=== PATIENT | male | born 1945 | race Caucasian/White ===

== ENCOUNTER → 2016-06-14 | Outpatient (CLI) | payer OTHER | LOC: BHFA 09:00 | PROVIDERS: ATTEND Internal Medicine Cardiovascular Disease | DX: I82.409 Acute embolism and thrombosis of unspecified deep veins of unspecified lower extremity (principal); E78.5 Hyperlipidemia, unspecified | CPT/HCPCS: 78452; 93017; A9500; J2785 ==

== ENCOUNTER 2017-09-14 11:22 | Inpatient (IN) | payer OTHER, MEDICARE ==
--- NOTE | 2017-09-14 11:35 | EDPHY ---
H & P Time Seen by Provider: 09/14/17 11:27 HPI/ROS: CHIEF COMPLAINT: Altered mental status HISTORY OF PRESENT ILLNESS: The patient is a 71-year-old male on Coumadin who presents to the emergency department via EMS. Per report, the patient was found sitting naked in his car. He was found by his prior to arrival. He was last seen normal last evening. Patient's does not know what he was doing in the car or how he got there. The patient is unable to answer questions to contribute to the history. EMS states that the patient had a fall last . EMS also states that when they stood the patient from the car he spontaneously urinated. REVIEW OF SYSTEMS: Unable to obtain due the patient's mental status Smoking Status: Never smoked Physical Exam: Vitals noted GENERAL: No acute distress, alert. HEAD: Patient has dry blood and bruising on his left brow. There is a 2 cm crusted laceration on the left brow. EYES: PERRLA, EOMI, normal to inspection. ENT: Airway intact, no dental or oral injury, no malocclusion, no hemotympanum , normal external examination. NECK: The trachea is midline. There is no crepitus. The C-spine is nontender. RESPIRATORY: Clear to auscultation bilaterally, no rales, rhonchi or wheezing. There is no crepitus or palpable rib fractures. CVS: Regular rate and rhythm, no rubs, murmurs, or gallops. ABDOMEN: Soft, nontender, nondistended, normal bowel sounds, no bruising or abrasions. Pelvis: Stable. No tenderness palpation. Hips full range of motion. GENITAL/RECTAL: Normal external exam. BACK: There is a bruise on the left lateral back. No obvious tenderness to palpation. No spinal tenderness, no spinal step off SKIN: Normal color, warm, dry. No pallor or diaphoresis. EXTREMITIES: Atraumatic, neurovascularly intact distally in all extremities, pelvis is stable , hips with full range of motion, moves all extremities freely. NEURO/PSYCH: Alert and oriented x 0, GCS 14, coordinated movement. Normal motor sensory exam. Constitutional: Initial Vital Signs Temperature (C) 38.1 C 09/14/17 11:31 Heart Rate 108 H 09/14/17 11:31 Respiratory Rate 18 09/14/17 11:31 Blood Pressure 150/91 H 09/14/17 11:31 O2 Sat (%) 93 09/14/17 11:31 O2 Delivery Mode Room Air Allergies/Adverse Reactions: No Allergies [NKDA] Allergy (Verified 02/21/12 10:22) Home Medications: Medication Instructions Recorded Atorvastatin Calcium [Lipitor 80 80 mg PO DAILY 03/25/13 mg] Warfarin Sodium [Coumadin 5MG (*)] 7.5 mg PO DAILY 02/02/14 Escitalopram Oxalate [Lexapro] 10 mg PO DAILY 09/14/17 Zolpidem Tartrate [Zolpidem 10 mg PO HS PRN 09/14/17 Tartrate] Medical Decision Making - Diagnostics Imaging Results: Imaging Impressions Cervical Spine CT 09/14/17 11:28 Impression: 1. No acute posttraumatic abnormality identified. If there is persistent pain or neurologic deficit, consider MRI and/or flexion and extension views, if clinically indicated. 2. Multilevel degenerative change with severe spinal canal narrowing from C5-C7. Findings discussed with Rona Jimenez MD on September 14, 2017 at 1245 hours. Chest X-Ray 09/14/17 11:28 Impression: Hypoventilatory chest with no acute findings. Head CT 09/14/17 11:28 Impression: 1. Multiple left frontal parenchymal hemorrhages with minimal subarachnoid hemorrhage. 2. Tiny right frontal parenchymal versus subarachnoid hemorrhage. 3. Additional findings as above. Findings discussed with Rona Jimenez MD on September 14, 2017 at 1231 hours. ED Course/Re-evaluation: I met EMS on arrival. I took report from the pantry worker. Patient does appear to have traumatic injury on his left brow. Is also concern with possible stroke -like symptoms. The patient was last seen normal last evening. I do not know the exact time. The patient also has traumatic injury. Because of these findings I did not make the patient a stroke alert. EKG shows normal sinus rhythm, normal rate, normal axis, normal intervals. There are no ST or T-wave abnormalities. EKG is normal as interpreted by me. I reviewed the patient's laboratory studies. Lactic acid is elevated at 2.7. Patient's white count is elevated at 11. Patient's chemistry panel is notable for a mildly elevated anion gap at 17. Patient's total bilirubin is elevated at 2.2. Unconjugated bilirubin elevated at 1.7. Lipase is 92. Patient has a mildly elevated INR 1.3. Chest x-ray: No acute disease Head CT: Please refer the dictated report by Dr. Pendleton. The patient has intracranial hemorrhage the left frontal lobe. I discussed the results with Dr. Escobedo from Neurosurgery. He will evaluate the patient. I also discussed case with the hospitalist service. Dr. Thomas will admit. The patient was given Rocephin 1 g IV. This was due to his fever and elevated lactic acid. I was concerned the patient could have urosepsis. However, when the urine came back it was negative. I rechecked the patient. He was maintaining his airway. Aside from aphasia, he had no focal deficits on repeat exam. Differential Diagnosis: My differential includes but is not limited to subarachnoid hemorrhage, subdural hematoma, epidural hematoma, contusion, ischemic CVA, hemorrhagic CVA, dissection, aneurysm, bacteremia, sepsis, pneumonia, urinary tract infection, pyelonephritis Critical Care Time: Patient required 35 min of critical care time. This was exclusive of any unbundled procedure. This was due the patient's altered mental status, need for frequent rechecks, discussion with patient , EMS and hospitalist service. - Data Points Laboratory Results: Laboratory Results 09/14/17 11:20 09/14/17 11:20 09/14/17 09/14/17 09/14/17 11:40 11:35 11:20 WBC RBC Hgb Hct MCV MCH MCHC RDW Plt Count MPV Neut % (Auto) Lymph % (Auto) [place] % (Auto) Eos % (Auto) Baso % (Auto) Nucleat RBC Rel Count Absolute Neuts (auto) Absolute Lymphs (auto) Absolute Monos (auto) Absolute Eos (auto) Absolute Basos (auto) Absolute Nucleated RBC Immature Gran % Immature Gran # RBC/WBC/PLT Morphology Platelet Estimate Oval Macrocytes Green-[place] Bodies Smear Review By PT INR APTT VBG Lactic Acid 2.7 mmol/L H mmol/L (0.7-2.1) Sodium 137 mEq/L mEq/L (135-145) Potassium 3.7 mEq/L mEq/L (3.3-5.0) Chloride 98 mEq/L mEq/L (97-110) Carbon Dioxide 22 mEq/l mEq/l (22-31) Anion Gap 17 mEq/L H mEq/L (8-16) BUN 20 mg/dL mg/dL (7-23) Creatinine 0.9 mg/dL mg/dL (0.7-1.3) Estimated GFR > 60 Glucose 188 mg/dL H mg/dL (70-100) Calcium 9.2 mg/dL mg/dL (8.5-10.4) Total Bilirubin 2.2 mg/dL H mg/dL (0.1-1.4) Conjugated Bilirubin 0.5 mg/dL mg/dL (0.0-0.5) Unconjugated Bilirubin 1.7 mg/dL H mg/dL (0.0-1.1) AST 76 IU/L H IU/L (17-59) ALT 46 IU/L IU/L (21-72) Alkaline Phosphatase 111 IU/L IU/L (38-126) POC Troponin I 0.02 ng/mL ng/mL (0.00-0.08) Total Protein 8.3 g/dL H g/dL (6.3-8.2) Albumin 4.6 g/dL g/dL (3.5-5.0) Lipase 92 IU/L IU/L (23-300) Ethyl Alcohol < 10 mg/dL mg/dL (0-10) 09/14/17 09/14/17 11:20 11:20 WBC 11.88 10^3/uL H 10^3/uL (3.80-9.50) RBC 4.33 10^6/uL L 10^6/uL (4.40-6.38) Hgb 14.5 g/dL g/dL (13.7-17.5) Hct 40.9 % % (40.0-51.0) MCV 94.5 fL fL (81.5-99.8) MCH 33.5 pg pg (27.9-34.1) MCHC 35.5 g/dL g/dL (32.4-36.7) RDW 13.5 % % (11.5-15.2) Plt Count 224 10^3/uL 10^3/uL (150-400) MPV 10.5 fL fL (8.7-11.7) Neut % (Auto) 66.5 % % (39.3-74.2) Lymph % (Auto) 15.1 % % (15.0-45.0) [place] % (Auto) 17.8 % H % (4.5-13.0) Eos % (Auto) 0.1 % L % (0.6-7.6) Baso % (Auto) 0.2 % L % (0.3-1.7) Nucleat RBC Rel Count 0.0 % % (0.0-0.2) Absolute Neuts (auto) 7.90 10^3/uL H 10^3/uL (1.70-6.50) Absolute Lymphs (auto) 1.79 10^3/uL 10^3/uL (1.00-3.00) Absolute Monos (auto) 2.11 10^3/uL H 10^3/uL (0.30-0.80) Absolute Eos (auto) 0.01 10^3/uL L 10^3/uL (0.03-0.40) Absolute Basos (auto) 0.02 10^3/uL 10^3/uL (0.02-0.10) Absolute Nucleated RBC 0.00 10^3/uL 10^3/uL (0-0.01) Immature Gran % 0.3 % % (0.0-1.1) Immature Gran # 0.04 10^3/uL 10^3/uL (0.00-0.10) RBC/WBC/PLT Morphology TNP Platelet Estimate Pending Oval Macrocytes 1+ H Green-[place] Bodies 1+ H Smear Review By Pending PT 16.7 SEC H SEC (12.0-15.0) INR 1.33 H (0.83-1.16) APTT 28.7 SEC SEC (23.0-38.0) VBG Lactic Acid Sodium Potassium Chloride Carbon Dioxide Anion Gap BUN Creatinine Estimated GFR Glucose Calcium Total Bilirubin Conjugated Bilirubin Unconjugated Bilirubin AST ALT Alkaline Phosphatase POC Troponin I Total Protein Albumin Lipase Ethyl Alcohol Medications Given: Discontinued Medications Acetaminophen (Tylenol) 650 mg PO EDNOW ONE Stop: 09/14/17 11:46 Last Admin: 09/14/17 11:49 Dose: 650 mg Sodium Chloride (Ns) 1,000 mls @ 0 mls/hr IV ONCE ONE PRN Reason: Wide Open Stop: 09/14/17 11:46 Last Admin: 09/14/17 11:48 Dose: 1,000 mls Sodium Chloride (Ns) 500 mls @ 0 mls/hr IV ONCE ONE PRN Reason: Wide Open Stop: 09/14/17 12:41 Last Admin: 09/14/17 14:14 Dose: 500 mls Ceftriaxone Sodium/Dextrose (Rocephin 1 Gm (Premix)) 50 mls @ 100 mls/hr IV EDNOW ONE PRN Reason: Protocol Stop: 09/14/17 13:13 Last Admin: 09/14/17 13:08 Dose: 50 mls Point of Care Test Results: Chemistry 09/14/17 11:40 POC Troponin I 0.02 ng/mL ng/mL (0.00-0.08) Departure - Departure Disposition: [facility] Inpatient Acute Clinical Impression: Intracranial hemorrhage Sepsis Qualifiers: Sepsis type: sepsis due to unspecified organism Qualified Code(s): A41.9 - Sepsis, unspecified organism Condition: Good
[2017-09-14 11:43] LABS: PLATELET COUNT 224 10^3/uL (150-400)
[2017-09-14] MEDS ORDERED: ACETAMINOPHEN 325 MG TAB PO ONE (11:45)
[2017-09-14] MEDS ORDERED: NS 1,000 ML IV ONE (11:45)
--- NOTE | 2017-09-14 11:45 | CPEKG ---
Heart Rate: 93 RR Interval: 645 P-R Interval: 172 QRSD Interval: 100 QT Interval: 396 QTC Interval: 493 P Clanton: 68 QRS Clanton: -12 T Wave Clanton: -12 EKG Severity - BORDERLINE ECG - EKG Impression: SINUS RHYTHM EKG Impression: BORDERLINE T ABNORMALITIES, INFERIOR LEADS EKG Impression: PROLONGED QT INTERVAL Electronically Signed By: Clyde Fischer 17-Sep-2017 07:32:22
[2017-09-14 11:46] LABS: INR 1.33 (0.83-1.16); PROTIME(PATIENT) 16.7 SEC (12.0-15.0)
[2017-09-14] MEDS ORDERED: NS 500 ML IV ONE (12:40)
--- NOTE | 2017-09-14 12:47 | PDCONSULT ---
Jail Keeper Note: NEUROSURGERY Imaging reviewed. Full consult to follow. 71M found with AMS in car. Likely head trauma with new laceration. CT with two areas of left frontal IPH, likely contusions. No significant mass effect, no shift. Mild surrounding edema suggestive of subacute status. No need for neurosurgical intervention at this time monitor in ICU or SDU with q2h neuro checks blood pressure contol 90-[address] scan in 6 hours urosepsis management per medicine will follow Felix Escobedo MD
[2017-09-14] MEDS ORDERED: ACETAMINOPHEN 325 MG TAB PO PRN (12:52)
[2017-09-14] MEDS ORDERED: ONDANSETRON 4 MG/2 ML VIAL IVP PRN (12:52)
[2017-09-14] MEDS ORDERED: ONDANSETRON DISINTEGRATING 4 MG TAB PO PRN (12:52)
[2017-09-14] MEDS ORDERED: FLUMAZENIL 0.5 MG/5 ML MDV IVP PRN (15:00)
--- NOTE | 2017-09-14 15:41 | GHP ---
[f rep st] HISTORY AND PHYSICAL DATE OF ADMISSION: 09/14/2017 CHIEF COMPLAINT: Acute encephalopathy, fall. HISTORY OF PRESENT ILLNESS: A 71-year-old male with history of splenic, portal vein thrombosis, and DVT on coumadin, alcohol dependence, brought in for confusion. History is obtained from his and [facility] since patient confused. found him today sitting naked in the car buckled in as if he was going to drive away. Was babbling and not making sense, no facial droop. No recent infectious symptoms. He has been eating and drinking less over last couple of days. She noticed he was a little confused last night, but that significantly changed this morning. He fell night at approximately 3 a.m. after standing up from a chair. She saw him falling backwards, hitting head on [place] floor. "Has balance issues". She thinks Ambien contributed to fall. His last Coumadin clinic visit was in June of 2017 per our records. INR is 1.3 today. REVIEW OF SYSTEMS: I completed a 10-point review of systems, negative except in HPI. PAST MEDICAL HISTORY: Possible TIA, gastric varices, splenic vein thrombosis, portal vein thrombosis, history of right calf DVT, hyperlipidemia. PAST SURGICAL HISTORY: Left CHELY, right TKA, urinary sphincter, splenectomy. FAMILY HISTORY: He denies coronary disease, diabetes, or high blood pressure. SOCIAL HISTORY: Lives in [place] with his . No tobacco. Drinks a magnum of wine daily. Last drink was night. No tobacco. ALLERGIES: None. HOME MEDICATIONS: Coumadin 7.5 mg daily, Lexapro 10 mg daily, atorvastatin 80 mg daily, Ambien 5 mg at bedtime, Lasix. PHYSICAL EXAMINATION: VITAL SIGNS: Temperature 37.3, blood pressure is 131/83 , heart rate in the 90s, respiration 20, 91% on room air. GENERAL: He is very fidgety and restless in bed, trying to climb out. HEENT: Pupils are small, but round, reactive. Eyes: Could not follow my finger with exam. Has a large scabbed over laceration on his left forehead. His oropharynx is clear. No exudate or erythema. He has dry mucous membranes. CV: Regular rate and rhythm. LUNGS: Clear. ABDOMEN: Obese, soft. No grimace or pain with palpation. No CVA tenderness. MUSCULOSKELETAL: He is moving all 4 extremities. NEURO: He follows some commands. No facial droop. Not participating fully in my exam. PSYCH: He is alert to himself, not place or his 's name next. LABORATORY/IMAGING: Lactate is 2.7. Sodium 137, potassium 3.7, chloride 98, carbon dioxide 22, anion gap 17, creatinine 0.9, glucose 188, calcium 9.2. Total bilirubin 2.2, unconjugated 1.7, AST 76, ALT 46, troponin 0.02, total protein 8.3, albumin is 4.6. Lipase is 92. troponin 0.02, Blood alcohol is less than 10. UA is +2 blood. INR is 1.3 PTT 16. Chest x-ray is personally reviewed by me: Poor inspiratory efforts. No opacity. EKG personally reviewed by me: Normal sinus rhythm. T-wave inversion in lead III, flattening in II and aVF. CT personally reviewed by me: Multiple left frontal parenchymal hemorrhages with minimal subarachnoid hemorrhage. Tiny right frontal parenchymal versus subarachnoid hemorrhage. Cervical CT-spine: No acute fracture. ASSESSMENT AND PLAN: 1. Acute encephalopathy: multifactorial with acute intraparenchymal hemorrhage/ SDH/SAH. Mild fever in ER, but no infectious cause yet. Normal UA and chest x- ray. Complete infectious eval for respiratory PCR, RUQ. Alcohol withdrawal could be contributing; last drink 2 days ago. CIWA. Monitor in step-down unit with q.2 neuro checks, repeat CT scan in 6 hours. Troponin, EKG were negative for ischemia. 2. Intraparenchymal/subarachnoid hemorrhage: traumatic fall on coumadin.Dr. Escobedo evaluated. Repeat CTH, hold Coumadin. q2h neuro checks. No surgical intervention now. Speech, PT/OT 3. h/o thromboses:splenic/portal vein, and right calf. Appears not compliant with Coumadin. His INR is 1.3. Have to hold the next couple of days with acute hemorrhage. 4. Alcohol dependence: drinks a magnum of wine a day. Will need counseling when mental status clears. CIWA 5. Lactic acidosis: Suspect this is starvation ketoacidosis with decreased p.o. intake. Intravenous fluids. Repeat lactate pending. Blood alcohol actually is pending. 6. Hyperlipidemia. statin 7. Hyperbilirubinemia. Suspect this is secondary to alcohol. He is not tender on exam. Can consider ultrasound. 8. Diet: N.p.o. until speech evaluation. 9. DVT prophylaxis. DISPOSITION: Patient warrants inpatient admission given acute encephalopathy requiring further imaging, CIWA, and infectious evaluation. CRITICAL CARE TIME SPENT: 45 minutes bedside with patient, speaking with and reviewing imaging, labs, and coordinating care in the ICU. /[id number]/MODL MTDD
[2017-09-14] MEDS: THIAMINE HCL 500 MG in NS 100 ML IV SCH (15:54)
[2017-09-14] MEDS: LORazepam 2 MG/ML INJ IVP PRN ×3 (16:47→21:28)
--- NOTE | 2017-09-14 17:27 | GCON ---
[f rep st] CONSULTATION NEUROSURGERY CONSULT DATE OF CONSULTATION: 09/14/2017 The patient was seen at 4:30 p.m. on the ICU at [facility]. HPI: The patient is a 71-year-old man with a history of splenic and portal vein thrombosis on Coumad in as well as alcohol dependence who was brought in with altered mental status. Apparently this morn ing he was found in his car naked, buckled in as if he were going to drive. He was having some insen sible speech, but no facial droop or obvious weakness. He was slightly confused last night, but was significantly worse this morning. He has had a couple of falls over the last week, most recently 2 d ays ago where he hit the back of his head on the floor. He also had a large scab in the left frontal region today upon presentation. He was seen in the emergency department where a CT of the head reve aled 2 left frontal intraparenchymal hemorrhages consistent with contusions. The largest of these me asured 2.8 x 1.6 cm. There was very mild surrounding cytotoxic or vasogenic edema and a small amount of subarachnoid hemorrhage around the left frontal lobe. All this was consistent with trauma, but t he edema around these does raise some thought of whether this could be underlying hemorrhagic metasta ses. We were consulted for further management. REVIEW OF SYSTEMS: A 10-point review of systems really could not be obtained due the patient's aphas ia. PAST MEDICAL HISTORY: 1. TIA. 2. Gastric varices. 3. Splenic vein thrombosis. 4. Portal vein thrombosis. 5. DVTs in the calf. 6. Hyperlipidemia. PAST SURGICAL HISTORY: 1. Left hip arthroplasty. 2. Right knee arthroplasty. 3. Urinary sphincterotomy. 4. Splenectomy. FAMILY HISTORY: Reviewed, but was noncontributory to this admission. SOCIAL HISTORY: The patient lives in [place] with his . He does not use tobacco. He drinks at least 1 magnum of wine daily. His last drink was night. ALLERGIES: None. MEDICATIONS: 1. Coumadin. 2. Lexapro. 3. Atorvastatin. 4. Ambien. 5. Lasix. PHYSICAL EXAMINATION: VITAL SIGNS: Currently, he is afebrile with normal stable vital signs. GENER AL APPEARANCE: He is awake and alert. HEENT: His pupils are equal, round, and reactive to light. Extraocular movements are intact. Face is symmetric. Tongue is midline. He has some ecchymoses ove r the left eye and a large eschar over the left frontal region consistent with a trauma. NEUROLOGIC: He has a marked expressive aphasia, is not really able to answer any questions clearly. 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 He has full strength at the delt oid, biceps, triceps, wrist flexion, extension, and packaging supervisor bilaterally. In the lower extremities, he h as 5/5 strength to hip flexion, extensors, knee flexors, extension, and plantar and dorsiflexion. Hi s face is symmetric. Sensation appears to be intact and his deep tendon reflexes are normal. There is no pronator drift. IMAGING REVIEW: See HPI. LABORATORY REVIEW: Lactate is 2.7. Sodium 137, potassium 3.7, creatinine 0.9, glucose 188. Blood a lcohol is less than 10. INR is 1.3, PT 16. White count is 11.8, hemoglobin 14.5, hematocrit 40.9. Platelet count is 224,000. ASSESSMENT/PLAN: 1. The patient is a 71-year-old man who presents with likely traumatic left frontal contusions and a small amount of traumatic subarachnoid hemorrhage. There really is not significant mass effect from these contusions at this point; however, they could explain his expressive aphasia. It appears as t gilbert these are slightly subacute and maybe happened within the last 12 or 24 hours. His overall abby rologic exam is excellent to follow. Therefore, I would continue with q.2 hour neurologic checks. Glenny centeno to repeat a CAT scan after 6 hours or so sometime this evening and consider an MRI with and with out contrast tomorrow to rule out any other source for these or given his history of clotting could t hese be hemorrhagic conversion of infarct, although the anatomic distribution would be slightly unusu al for this. His INR is 1.3 today, so I would leave him off Coumadin for at least 3 days after which time we can consider restarting it, but slowly with the goal of raising the INR to therapeutic over 5-7 days. 2. Deep vein thrombosis prophylaxis. Heparin would be fine at this point. We will follow along while he is here in the hospital. Please do not hesitate to contact us with any further questions or concerns. Thanks for the kind consultation. /[id number]/MODL
[2017-09-15] MEDS: NS 1,000 ML IV SCH ×2 (00:08→20:53)
[2017-09-15] MEDS: LORazepam 2 MG/ML INJ IVP PRN ×7 (00:52→20:48)
[2017-09-15 05:03] LABS: INR 1.34 (0.83-1.16); PROTIME(PATIENT) 16.8 SEC (12.0-15.0)
[2017-09-15] MEDS ORDERED: PROTOCOL MAGNESIUM 1 DOSE IV PRN (05:41)
[2017-09-15] MEDS ORDERED: PROTOCOL POTASSIUM 1 DOSE MISC PRN (05:41)
[2017-09-15] MEDS ORDERED: POTASSIUM Cl (KCl) 100 ML IV SCH ×2 (06:30→15:00)
[2017-09-15] MEDS: POTASSIUM Cl (KCl) 10 MEQ in NS 100 ML IV SCH ×6 (06:32→17:41)
[2017-09-15] MEDS ORDERED: MAGNESIUM SULF 2 GM/WATER 50 ML IV ONE (06:47)
--- NOTE | 2017-09-15 09:34 | NEUSURGPN ---
Assessment/Plan: S: Patient is following commands and somewhat more verbal than yesterday. Per RN was very agitated last night needing several doses of Ativan. O: Responds to name, cannot say last name, date, place or say how many fingers Eyes open to tactile stimulation PERRL, EOMI [place]WE[place] X4- not always to command left sided facial abrasions, ecchymoses A/P: 71 yo male with AMS, expressive aphasia and hx of ETOH abuse, found to have 2 left frontal contusions. -CT head stable yesterday evening -CT scan still concerning for possible hemorrhagic metastases- will obtain MRI Brain w and wo contrast once stable enough to do so- currently too agitated -Precedex ok rather than Ativan for ETOH withdrawal- will defer to primary team for this -Continue Q2 hour neuro checks as able -Any changes, or concerns please contact neurosurgery -DVT prophy ok from Neurosurgery standpoint- would prefer SubQ Hep 5000 q12 no bolus -Seen by Dr. Escobedo and myself this morning -Continue ICU level of care for neuro checks/ETOH withdrawal - Physician Discussed Patient with Dr.: Escobedo Patient Seen by Dr.: Escobedo Neurosurgery Physical Exam - Vitals, I&O, Labs I and O 09/14/17 09/15/17 09/16/17 05:59 05:59 05:59 Intake Total 1450 Balance 1450 Weight 98.6 kg Intake: IV Infused (ml) 1450 Ns 1,000 ml @ 100 mls/hr 1450 IV CONT TRIP Rx#: [id number] Other: Number of Voids Incontinence 10 Number of Stools Incontinence 0 Microbiology 09/14/17 15:30 Respiratory Panel (PCR) - Final Nasal, Sinus - Swab No Organism Detected Vital Signs Temp Pulse Resp BP Pulse Ox 37.6 C 79 20 142/74 H 95 09/15/17 08:00 09/15/17 08:00 09/15/17 08:00 09/15/17 08:00 09/15/17 08:00 Laboratory Results 09/15/17 04:25 09/15/17 04:25 ICD10 Worksheet Patient Problems: Problems Problem Status Onset Intracranial hemorrhage Acute Sepsis Acute Disorder of prostheses and implants Acute
[2017-09-15] MEDS: THIAMINE HCL 500 MG in NS 100 ML IV SCH (10:12)
--- NOTE | 2017-09-15 10:21 | PDMN ---
Medical Necessity Medical necessity: Pt meets IP criteria per MD; los >2 mn for eval/tx of acute encephalopathy w/traumatic intraparenchymal/subarachnoid hemorrhage r/t recent fall; admit to ICU for further workup/close monitoring, Neuro consult, CIWA protocol, IVFs & therapies; hx splenic/portal vein thrombosis, DVT on AC, TIA, alcohol dependence; per H&P & order 09/14/17
[2017-09-15] MEDS: HEPARIN 5,000 UNIT/0.5 ML INJ SC SCH ×2 (10:27→15:15)
[2017-09-15] MEDS ORDERED: HALOPERIDOL LACT 5 MG/ML INJ IVP PRN (10:43)
--- NOTE | 2017-09-15 10:49 | HOSPPROG ---
Hospitalist Progress Note Assessment/Plan: #Acute encephalopathy: multifactorial with IPH, Etoh withdrawal. No e/o infection #IPH/SAH: repeat CT last evening stable. Will benefit from MRI when can tolerate #Agitation: Haldol PRN #Etoh dependence: CIWA #Lactic acidosis: starvation/alcoholic ketosis. Resolved with IVFs #h/o thromboses: holding coumadin. d/w NSGY when can resume #Hyperbilirubinemia: unremarkable U/S #HLD: statin once taking PO #Diet: NPO #DVT ppx: SQH (ok per NSGY) #Disp: cont inpatient admission for neuro check, Etoh w/d Subjective: agitated this morning; tried to climb out of bed Objective: Vital Signs Temp Pulse Resp BP Pulse Ox 37.6 C 78 20 143/69 H 98 09/15/17 08:00 09/15/17 10:00 09/15/17 10:00 09/15/17 10:00 09/15/17 10:00 Microbiology 09/14/17 15:30 Respiratory Panel (PCR) - Final Nasal, Sinus - Swab No Organism Detected Laboratory Results 09/15/17 04:25 09/15/17 04:25 09/14/17 09/15/17 09/16/17 05:59 05:59 05:59 Intake Total 1450 Balance 1450 PT 16.8 SEC (12.0-15.0) H 09/15/17 04:25 INR 1.34 (0.83-1.16) H 09/15/17 04:25 - Time Spent With Patient Time Spent with Patient: greater than 35 minutes Time Spent with Patient: Greater than 35 minutes spent on this patients care, greater than 50% of time spent counseling, educating, and coordinating care regarding the above mentioned plan. - Physical Exam Constitutional: other (restless) Eyes: EOMI Ears, Nose, Mouth, Throat: other (scabs laceration of left forehead) Cardiovascular: regular rate and rhythym Respiratory: no respiratory distress Gastrointestinal: normoactive bowel sounds Musculoskeletal: other (mitts on hands, roller belt in place) Psychiatric: encephalopathic ICD10 Worksheet Patient Problems: Problems Problem Status Onset Intracranial hemorrhage Acute Sepsis Acute Disorder of prostheses and implants Acute
--- NOTE | 2017-09-15 12:50 | ASMTCMCOM ---
CM Note CM Note Notes: 71yr old male admitted for acute encephalopathy, ETOH, Fall: SDH/SAH. He has a Hx of HLD, DVT, Splenectomy. Therapies to eval. CM to follow for discharge needs. Date Signed: 09/15/2017 12:49 PM Electronically Signed By:Ana Drake LCSW
--- NOTE | 2017-09-15 17:09 | GCON ---
[f rep st] CONSULTATION PULMONARY/CRITICAL CARE CONSULTATION DATE OF CONSULTATION: 09/15/2017 REASON FOR CONSULTATION: Intensive care unit evaluation and management of encephalopathy, subdural h emorrhage, and alcohol withdrawal. HISTORY: The patient is a 71-year-old with multiple medical problems. He was admitted yesterday fro m the emergency department, secondary to increasing confusion and lethargy. He apparently was found without clothes in his car, seat belt in place. He was talking, but nonsensically. Some confusion w as noted by the patient's the night before his admission. 3 days previously, he fell in the nig ht. He hit his head on the floor. He was on anticoagulation, but may not have been noncompliant wit h taking Coumadin as INR was 1.[address] scan on admission showed some frontal intraparench ymal hemorrhage with small subarachnoid hemorrhage. CT scan of the spine was negative. Chest x-ray was unremarkable. He was seen by Neurosurgery. Surgical intervention was not felt to be required. He was admitted to the intensive care unit. He does drink significantly, reportedly a magnum of wine per day, which is equivalent of approximatel y 2 bottles. PAST MEDICAL HISTORY: Remarkable for splenic and portal vein thrombosis, DVT, hyperlipidemia, gastri c varices, and a possible TIA in the past. He is status post splenectomy. SOCIAL HISTORY: He lives with his in the [facility]. Tobacco is reportedly negative. ALLERGIES: No known drug allergies. FAMILY HISTORY: Unobtainable, reportedly positive for coronary disease, hypertension, and diabetes. REVIEW OF SYSTEMS: Unobtainable. PHYSICAL EXAMINATION: GENERAL: Reveals an elderly gentleman who is somnolent. Mits are in place. VITAL SIGNS: Blood pressure is approximately 130/70, heart rate 80 with sinus rhythm on the monitor. Respiratory rate is 20. On 2 L, saturations are 96%. He is afebrile. HEENT: Pupils appear equal . Mucous membranes are somewhat dry. NECK: There is no obvious jugular venous distention. CHEST: Clear anteriorly. Breath sounds are diminished at the bases. HEART: Regular in rate and rhythm wi thout significant murmur or gallop. ABDOMEN: Soft, nontender. Bowel sounds are present, but dimini shed. EXTREMITIES: Remarkable for trace plus edema. NEUROLOGIC: Nonfocal. He moves all extremiti es relatively equally to stimulation. With noxious stimuli, he arouses and he is oriented to person, a hospital, and 2018. LABORATORY DATA: White blood cell count is 12,900, hematocrit 36. INR is 1.34. Lactate 1.8. Basic metabolic panel is within normal limits, potassium is 3.5, CO2 is 24, magnesium is 1.3, calcium is l ow at 7.3. AST is 88 with an ALT of 36. Troponins are negative. Albumin is 3.5. TSH is normal. U rinalysis on admission was normal. Salicylates and acetaminophen were normal. Blood alcohol was neg ative. ASSESSMENT: 1. Abnormal mental status. This is secondary to his fall with his intraparenchymal hemorrhage and s mall subdurals. Repeat CT scan done last night was unchanged. MRI has been ordered and is pending. In addition, his abnormal mental status is associated with alcohol withdrawal. He is on the CIWA pr otocol. He has been receiving Ativan on a p.r.n. basis. Precedex is not indicated. 2. Closed head injury. This is associated with intraparenchymal hemorrhage, as well as small subara chnoid hemorrhages. There is no indication for surgical intervention. He appears to be improving. 3. Alcohol withdrawal. The patient is a heavy drinker. He is on the CIWA protocol. Ativan is bein g given. There is no indication for Precedex currently. CIWA is approximately 8. Haldol has been o rdered. 4. History of thrombotic disease. He has had significant clotting in the past. He is on prophylact ic heparin now, 5000 units every 8 hours. There is no evidence of clotting or bleeding. Full-dose a nticoagulation will be needed as soon as acceptable per Neurosurgery. 5. Metabolic: No significant issues are identified. He is on electrolyte replacement protocols, po tassium and magnesium. PLAN/RECOMMENDATIONS: The patient will be kept in the intensive care unit. Neurologic checks will b e maintained. Followup CT scan will be done with changes in mental status. MRI is pending, but is n ot emergent. CIWA protocols will be continued. Laboratory will be followed. Current medications wi ll be maintained. Famotidine will be added to his regimen until he is taking food orally. Thiamine will be continued. Further plans and recommendations will be made based on his progress over the next 12-24 hours. /[id number]/MODL
[2017-09-15] MEDS: FAMOTIDINE 20 MG/NACL 50 ML IV SCH (20:48)
[2017-09-15] MEDS: POTASSIUM Cl (KCl) 100 ML IV SCH (22:12)
[2017-09-16] MEDS: POTASSIUM Cl (KCl) 100 ML IV SCH ×2 (00:55→04:00)
[2017-09-16] MEDS: LORazepam 2 MG/ML INJ IVP PRN ×2 (01:00→02:39)
[2017-09-16 06:21] LABS: PLATELET COUNT 177 10^3/uL (150-400)
--- NOTE | 2017-09-16 08:30 | NEUSURGPN ---
Assessment/Plan: Assessment: 71 yo male with AMS, expressive aphasia and hx of ETOH abuse, found to have 2 left frontal contusions -CT head stable 09/14 -CT scan still concerning for possible hemorrhagic metastases- will obtain MRI Brain w and wo contrast once stable enough to do so- patient has history of claustrophobia with MRIs in the past -Continue Q2 hour neuro checks -Any changes, or concerns please contact neurosurgery -DVT prophy ok from Neurosurgery standpoint- would prefer SubQ Hep 5000 q12 no bolus -Neurologically improving, speaking in full sentences Discussed patient with Dr Escobedo Subjective: Feeling better, asking for water Objective: AxO x3 PERRLA EOMI CN 2-12 grossly intact 5/5 BUE, BLE Neuro Check Frequency: per routine Urinary Catheter in Place: No - Physician Discussed Patient with Dr.: Escobedo Neurosurgery Physical Exam - Vitals, I&O, Labs I and O 09/15/17 09/16/17 09/17/17 05:59 05:59 05:59 Intake Total 1450 2392 Balance 1450 2392 Weight 98.6 kg Intake: IV Infused (ml) 1450 2392 Ns 1,000 ml @ 100 mls/hr 1450 2392 IV CONT TRIP Rx#: [id number] Other: Number of Voids Incontinence 10 2 Number of Stools Incontinence 0 0 Vital Signs Temp Pulse Resp BP Pulse Ox 36.8 C 68 18 115/71 95 09/16/17 00:00 09/16/17 06:00 09/16/17 06:00 09/16/17 06:00 09/16/17 06:00 Laboratory Results 09/16/17 05:40 09/16/17 05:40 ICD10 Worksheet Patient Problems: Problems Problem Status Onset Intracranial hemorrhage Acute Sepsis Acute Disorder of prostheses and implants Acute
[2017-09-16] MEDS: HEPARIN 5,000 UNIT/0.5 ML INJ SC SCH ×2 (08:37→21:08)
[2017-09-16] MEDS: NS 1,000 ML IV SCH (08:37)
[2017-09-16] MEDS: FAMOTIDINE 20 MG/NACL 50 ML IV SCH (08:37)
--- NOTE | 2017-09-16 08:48 | HOSPPROG ---
Hospitalist Progress Note Assessment/Plan: #Acute encephalopathy: multifactorial with IPH/SAH, Etoh withdrawal. No e/o infection. No electrolyte derangements. Normal B12, TSH -much improved due #IPH/SAH: repeat CT stable 09/14. MS improved. Consider MRI, but may be difficult with severe claustrophobia #Agitation: Haldol PRN #Etoh dependence: CIWA #Fever: none since DOA. No infectious source identified #Leukocytosis: stress-reaction? Afebrile now, cultures negative #Lactic acidosis: starvation/alcoholic ketosis. Resolved with IVFs #h/o thromboses: holding coumadin. d/w NSGY when can resume #Hyperbilirubinemia: unremarkable U/S #HLD: statin once taking PO #Diet: NPO #DVT ppx: SQH (ok per NSGY) #Disp: cont inpatient admission for neuro check, Etoh w/d Subjective: sitting up in chiar, much more lucid today Objective: Vital Signs Temp Pulse Resp BP Pulse Ox 36.8 C 68 18 115/71 95 09/16/17 00:00 09/16/17 06:00 09/16/17 06:00 09/16/17 06:00 09/16/17 06:00 Laboratory Results 09/16/17 05:40 09/16/17 05:40 09/15/17 09/16/17 09/17/17 05:59 05:59 05:59 Intake Total 1450 2392 Balance 1450 2392 PT 16.8 SEC (12.0-15.0) H 09/15/17 04:25 INR 1.34 (0.83-1.16) H 09/15/17 04:25 - Time Spent With Patient Time Spent with Patient: greater than 35 minutes Time Spent with Patient: Greater than 35 minutes spent on this patients care, greater than 50% of time spent counseling, educating, and coordinating care regarding the above mentioned plan. - Physical Exam Constitutional: no apparent distress Eyes: PERRL Ears, Nose, Mouth, Throat: moist mucous membranes, other (scabbed laceration left forehead) Cardiovascular: regular rate and rhythym Respiratory: no respiratory distress Gastrointestinal: normoactive bowel sounds Skin: warm Neurologic: AAOx3 Psychiatric: encephalopathic, other (mild expressive aphasia) ICD10 Worksheet Patient Problems: Problems Problem Status Onset Intracranial hemorrhage Acute Sepsis Acute Disorder of prostheses and implants Acute
[2017-09-16] MEDS: THIAMINE HCL 500 MG in NS 100 ML IV SCH (09:35)
[2017-09-16] MEDS ORDERED: PROTOCOL POTASSIUM 1 DOSE MISC PRN (09:57)
--- NOTE | 2017-09-16 12:01 | PDINTPN ---
Glass Checker Progress Note Assessment/Plan: Assessment: Status post fall with closed head injury/IPH, small SAHs Altered mental status: Markedly improved. Alcohol withdrawal. Resolving, much better. On CIWA. On p.r.n. Ativan and Haldol. History of venous thrombosis. Off anticoagulation currently except for prophylactic heparin. We will need to restart full-dose anticoagulation once acceptable with neuro surgery. Metabolic: No current issues identified. Prophylaxis: On famotidine and subcu heparin. Plan: Continue care in the intensive care unit for now. Continue present medications. Can change to SDU, possibly med surge later today or tomorrow. Follow laboratory, clinical, and neurologic status. Subjective: Markedly improved neurologic status today. Awake and alert, up in the chair. Ambulatory in the room. Still little impulsive at times. Remembers falling. Objective: Vital Signs Temp Pulse Resp BP Pulse Ox 37.4 C 69 20 143/79 H 96 09/16/17 08:00 09/16/17 10:00 09/16/17 10:00 09/16/17 10:00 09/16/17 10:00 Laboratory Results 09/16/17 05:40 09/16/17 05:40 09/15/17 09/16/17 09/17/17 05:59 05:59 05:59 Intake Total 1450 2392 Balance 1450 2392 PT 16.8 SEC (12.0-15.0) H 09/15/17 04:25 INR 1.34 (0.83-1.16) H 09/15/17 04:25 Laboratory Tests 09/16/17 09/16/17 05:40 06:10 Calcium 7.4 L Phosphorus 2.8 Magnesium 2.1 Ammonia < 9.0 L Physical Exam - Physical Exam General Appearance: alert, no apparent distress EENT: PERRL/EOMI, other (On room air) Neck: normal inspection Respiratory: lungs clear (Anteriorly), decreased breath sounds (At bases), No rales, No rhonchi Cardiac/Chest: regular rate, rhythm, No gallop Abdomen: non-tender, soft (Overweight), No normal bowel sounds (Decreased, present) Male Genitalia: other (No Moscoso catheter) Skin: normal color, warm/dry Extremities: No pedal edema Neuro/Psych: no motor/sensory deficits, No cognition abnormalities (Oriented x3) ICD10 Worksheet Patient Problems: Problems Problem Status Onset Disorder of prostheses and implants Acute Intracranial hemorrhage Acute Sepsis Acute
--- NOTE | 2017-09-16 16:32 | ASMTCMCOM ---
CM Note CM Note Notes: Therapies recommending SNF Rehab. Patient reports that he spent 2 mos in assisted and refuses to go to a SNF or Rehab. I asked him if he would prefer if Therapies came to his home=HC, he refused that care also. He was interested in educational materials on ETOH as well as Depression which I did give him. He lives with his who works in [employer] during the week. Patient says he is interested in quiting alcohol and has quit by himself in the past. Not interested in AA Mtgs. Date Signed: 09/16/2017 04:32 PM Electronically Signed By:Ana Drake LCSW
[2017-09-16] MEDS: FAMOTIDINE 20 MG TAB PO SCH (21:08)
--- NOTE | 2017-09-17 02:18 | HOSPPROG ---
Hospitalist Progress Note Assessment/Plan: Hospitalist night float note Paged by RN regarding patient with increased agitation and wanting to leave. 71-year-old gentleman status post a fall with intracranial hemorrhage and ETOH withdrawal. Arrive to bedside to find patient sitting on the bed. He has had increasing agitation has not required a roll belt that shift however patient did attempt to get out of the bed and assisting RN reports that patient was increasingly agitated and swat at her away. Patient subsequently wanting to leave. Arrived to bedside. Patient was feeling frustrated. He was asking why he could not go outside for a walk when he wanted to. He was frustrated that he had to ask RN for help to stand up. He did not feel he needed to use a walker for ambulation. He states that he does not think that he has a bleed in his head. Additionally patient is disoriented to time. He reports that he has been in bed for over 20 hr however he has been up during day shift and again 3 times on this evening shift. He does not recall all of the episodes of ambulation. Additionally patient thinks that he is on a hold and a mental health hospital despite being clarified that he is in ICU and acutely ill. As able to speak with the patient along with primary RN. Despite clarified with the patient that he is acutely ill with intracranial hemorrhage and does continue to need some assistance with ambulation and use of a walker he still has some trouble understanding this. He agrees took page the RN for assistance when he does want to get up. He does not want to ambulate at this time. He wants to talk to the day team regarding disposition. On patient was able to be calmed without use of sedatives. Objective: Vital Signs Temp Pulse Resp BP Pulse Ox 36.6 C 78 18 137/73 H 95 09/16/17 20:00 09/17/17 00:00 09/17/17 00:00 09/16/17 20:00 09/17/17 00:00 Laboratory Results 09/16/17 05:40 09/16/17 05:40 09/15/17 09/16/17 09/17/17 05:59 05:59 05:59 Intake Total 1450 2392 1200 Balance 1450 2392 1200 PT 16.8 SEC (12.0-15.0) H 09/15/17 04:25 INR 1.34 (0.83-1.16) H 09/15/17 04:25 ICD10 Worksheet Patient Problems: Problems Problem Status Onset Intracranial hemorrhage Acute Sepsis Acute Disorder of prostheses and implants Acute
[2017-09-17] MEDS: THIAMINE HCL 100 MG TAB PO SCH (08:19)
[2017-09-17] MEDS: FAMOTIDINE 20 MG TAB PO SCH ×2 (08:19→21:35)
[2017-09-17] MEDS: HEPARIN 5,000 UNIT/0.5 ML INJ SC SCH ×2 (08:19→21:35)
[2017-09-17] MEDS ORDERED: POTASSIUM CL 10 MEQ TAB PO ONE ×2 (08:41→23:43)
--- NOTE | 2017-09-17 09:00 | NEUSURGPN ---
Assessment/Plan: Assessment: 71 yo male with AMS, expressive aphasia and hx of ETOH abuse, found to have 2 left frontal contusions -CT head stable 09/14 -CT scan still concerning for possible hemorrhagic metastases- will obtain MRI Brain w and wo contrast once stable enough to do so- patient has history of claustrophobia with MRIs in the past. Will order oral valium in effort to tolerate the exam. -Q4hr neuro checks -Any changes, or concerns please contact neurosurgery -DVT prophy ok from Neurosurgery standpoint- would prefer SubQ Hep 5000 q12 no bolus -Neurologically improving, speaking in full sentences Discussed patient with Dr Escobedo Subjective: Sitting in chair, feeling well Objective: AxO x3 PERRLA EOMI CN 2-12 grossly intact 5/5 BUE, BLE Neuro Check Frequency: per routine Urinary Catheter in Place: No - Physician Discussed Patient with Dr.: Escobedo Neurosurgery Physical Exam - Vitals, I&O, Labs I and O 09/16/17 09/17/17 09/18/17 05:59 05:59 05:59 Intake Total 2392 1200 Balance 2392 1200 Intake: Oral (ml) 650 IV Intake (ml) 550 IV Infused (ml) 2392 Ns 1,000 ml @ 100 mls/hr 2392 IV CONT TRIP Rx#: [id number] Other: Intake Quantity Yes Sufficient Number of Voids Incontinence 2 4 Number of Stools Incontinence 0 0 Vital Signs Temp Pulse Resp BP Pulse Ox 36.9 C 74 16 177/93 H 96 09/17/17 08:00 09/17/17 08:00 09/17/17 08:00 09/17/17 08:00 09/17/17 08:00 Laboratory Results 09/16/17 05:40 09/17/17 04:10 ICD10 Worksheet Patient Problems: Problems Problem Status Onset Intracranial hemorrhage Acute Sepsis Acute Disorder of prostheses and implants Acute
[2017-09-17] MEDS ORDERED: DIAZEPAM 5 MG TAB PO ONE ×3 (09:01→14:00)
[2017-09-17] MEDS ORDERED: GADOBUTROL 10 ML VIAL IVP ONE (14:19)
--- NOTE | 2017-09-17 19:03 | PDINTPN ---
Vice President Of Brand Management Progress Note Assessment/Plan: Assessment: Status post fall with closed head injury/IPH, small SAHs, hygroma. Altered mental status: Markedly improved. Remains impulsive, likely more related to his head injury as opposed to alcohol withdrawal. Alcohol withdrawal. Resolving, much better. On CIWA. On p.r.n. Ativan and Haldol. History of venous thrombosis. Off anticoagulation currently except for prophylactic heparin. We will need to restart full-dose anticoagulation once acceptable with neuro surgery. Possible amyloid on MRI? Check SPEP. Metabolic: No current issues identified. Prophylaxis: On famotidine and subcu heparin. Plan: Continue - can transfer to medical-surgical status. Continue present medications. Continue to think about restarting full-dose anticoagulation when acceptable with neuro surgery. Follow laboratory, clinical, and neurologic status. SPEP. Will need rehab: Question outpatient versus inpatient. Subjective: Doing well, no complaints. No shortness of breath, no pain, no headache. Objective: Vital Signs Temp Pulse Resp BP Pulse Ox 36.2 C 77 16 139/80 H 92 09/17/17 16:00 09/17/17 16:00 09/17/17 16:00 09/17/17 18:50 09/17/17 16:00 Laboratory Results 09/16/17 05:40 09/17/17 04:10 09/16/17 09/17/17 09/18/17 05:59 05:59 05:59 Intake Total 2392 1200 250 Balance 2392 1200 250 PT 16.8 SEC (12.0-15.0) H 09/15/17 04:25 INR 1.34 (0.83-1.16) H 09/15/17 04:25 Laboratory Tests 09/17/17 04:10 Calcium 8.0 L Phosphorus 2.7 Magnesium 1.5 L MRI: Evidence of recent intraparenchymal hemorrhage, small hygroma, some other changes possibly consistent with amyloid? No evidence of metastatic disease or primary brain tumor. Physical Exam - Physical Exam General Appearance: alert, no apparent distress, obese, other (Impulsive at times, sitter at the bedside.) EENT: PERRL/EOMI Neck: normal inspection (No obvious JVD, large neck) Respiratory: lungs clear Cardiac/Chest: regular rate, rhythm Abdomen: normal bowel sounds, non-tender, soft (Overweight) Skin: normal color, warm/dry Extremities: pedal edema (Trace) Neuro/Psych: no motor/sensory deficits, cognition abnormalities (Impulsive, oriented x2, some trouble with the exact date.) ICD10 Worksheet Patient Problems: Problems Problem Status Onset Intracranial hemorrhage Acute Sepsis Acute Disorder of prostheses and implants Acute
[2017-09-17] MEDS ORDERED: POTASSIUM CL 20 MEQ/15 ML UDCUP PO ONE (23:45)
[2017-09-17] MEDS: ZOLPIDEM TARTRATE 5 MG TAB PO PRN (23:57)
--- NOTE | 2017-09-18 08:51 | NEUSURGPN ---
Assessment/Plan: Assessment/Plan: Assessment: 71 yo male with AMS, expressive aphasia and hx of ETOH abuse, found to have 2 left frontal contusions -CT head stable 09/14 -MRI Brain obtained and reviewed. No concerning enhancement to suggest neoplasm or metastatic disease. -Continue q4 hour neuro checks -PT.OT.RATING EXAMINER -Any changes, or concerns please contact neurosurgery -DVT prophy ok from Neurosurgery standpoint- would prefer SubQ Hep 5000 q12 no bolus -Neurologically improving, speaking in full sentences and much more alert Discussed patient with Dr Escobedo Subjective: Doing well this morning. Denies headaches, dizziness. Has not been out of bed yet today. Feeling better overall he states. Objective: AxO x3 PERRLA EOMI CN 2-12 grossly intact 5/5 BUE, BLE - Physician Discussed Patient with Dr.: Escobedo Neurosurgery Physical Exam - Vitals, I&O, Labs I and O 09/17/17 09/18/17 09/19/17 05:59 05:59 05:59 Intake Total 1200 490 Balance 1200 490 Intake: Oral (ml) 650 490 IV Intake (ml) 550 Other: Intake Quantity Yes Sufficient Output Comment Toilet nurse notified of small blood Number of Voids Incontinence 4 1 Toilet 1 Number of Stools Incontinence 0 Toilet 1 Vital Signs Temp Pulse Resp BP Pulse Ox 36.7 C 74 16 150/90 H 91 L 09/17/17 23:06 09/17/17 23:06 09/17/17 23:06 09/17/17 23:06 09/17/17 23:06 Laboratory Results 09/16/17 05:40 09/18/17 04:52 ICD10 Worksheet Patient Problems: Problems Problem Status Onset Intracranial hemorrhage Acute Sepsis Acute Disorder of prostheses and implants Acute
[2017-09-18] MEDS: HEPARIN 5,000 UNIT/0.5 ML INJ SC SCH ×3 (09:11→21:19)
[2017-09-18] MEDS: THIAMINE HCL 100 MG TAB PO SCH ×2 (09:11→10:17)
[2017-09-18] MEDS: FAMOTIDINE 20 MG TAB PO SCH ×3 (09:11→21:20)
--- NOTE | 2017-09-18 11:27 | ASMTCMCOM ---
CM Note CM Note Notes: Chart reviewed. Met with patient who declines needs for SNF or HHC. Spoke briefly with who will be coming in soon. Patient has history of ETOH and is under court ordered Alcohol Therapy classes, per his , she has already contacted his deputy attorney general.He feels he can handle his therapy by continuing to engage in Silver Sneakers at the local [facility],. CM to follow. Plan: Likely dc to home Independently when medically cleared for discharge. Date Signed: 09/18/2017 11:26 AM Electronically Signed By:Tess Ramirez RN
--- NOTE | 2017-09-18 14:03 | HOSPPROG ---
Hospitalist Progress Note Assessment/Plan: 71y male with hx ETOH found with confusion. First encounter, chart reviewed. D/ W CM. #Acute encephalopathy: improved, memory issues. multifactorial with IPH/SAH, Etoh withdrawal. No e/o infection. No electrolyte derangements. Normal B12, TSH much improved, still has a time gap #IPH/SAH: r repeat CT stable 09/14. MS improved. MRI, done, see report #Agitation: Haldol PRN #Etoh dependence: CIWA #Fever: none since DOA. No infectious source identified #Leukocytosis: stress-reaction? Afebrile now, cultures negative #Right foot pain: TTP over dorsum. Xray negative, personally reviewed #Lactic acidosis: starvation/alcoholic ketosis. Resolved with IVFs #h/o thromboses: holding coumadin. not a good candidate defer to neurosurg recs #Hyperbilirubinemia: unremarkable U/S #HLD: statin once taking PO #Diet: regular #DVT ppx: SQH (ok per NSGY) #Disp: cont inpatient admission for neuro check, Etoh w hopefully home in am pt refusing SNF/HHC or any other resources D/W and CM Subjective: Up in chair. No pain. Wants to go home. at bedside. Objective: Vital Signs Temp Pulse Resp BP Pulse Ox 36.5 C 88 20 144/93 H 93 09/18/17 10:13 09/18/17 10:13 09/18/17 10:13 09/18/17 10:13 09/18/17 10:13 Laboratory Results 09/16/17 05:40 09/18/17 04:52 09/17/17 09/18/17 09/19/17 05:59 05:59 05:59 Intake Total 1200 490 Balance 1200 490 PT 16.8 SEC (12.0-15.0) H 09/15/17 04:25 INR 1.34 (0.83-1.16) H 09/15/17 04:25 - Physical Exam Constitutional: not in pain, chronically ill appearing, obese, unkempt, other ( head abrasion) Eyes: PERRL, anicteric sclera, EOMI Ears, Nose, Mouth, Throat: moist mucous membranes, hearing normal, ears appear normal Cardiovascular: regular rate and rhythym, No JVD, No tachycardia, No edema Respiratory: no respiratory distress, no rales or rhonchi, reduced air movement Gastrointestinal: normoactive bowel sounds, No tenderness, No ascites Skin: warm, abrasion, No erythema Musculoskeletal: normal joint ROM, no joint effusions, generalized weakness Neurologic: AAOx3 Psychiatric: not encephalopathic, thought process linear, anxious, poor judgement, poor memory ICD10 Worksheet Patient Problems: Problems Problem Status Onset Disorder of prostheses and implants Acute Intracranial hemorrhage Acute Sepsis Acute
--- NOTE | 2017-09-18 15:06 | ASMTLACE ---
TOMMY Acuity / Level of Answers: Yes Care: Did the patient have an inpatient admission? Comorbidities - select Answers: History of falls all that apply Other Notes: Hx of portal vein thrombosis & DVT # of Emergency department Answers: 1-2 visits in the last 6 months Social determinants Answers: History of substance abuse (ETOH, street drugs, prescription drugs, etc.) Score: 11 Date Signed: 09/18/2017 03:05 PM Electronically Signed By:Mandy Chin
[2017-09-18] MEDS ORDERED: POTASSIUM CL 10 MEQ TAB PO ONE ×2 (21:08→21:45)
[2017-09-18] MEDS: ZOLPIDEM TARTRATE 5 MG TAB PO PRN (23:00)
[2017-09-19] MEDS ORDERED: POTASSIUM CL 10 MEQ TAB PO ONE (07:18)
[2017-09-19] MEDS: FAMOTIDINE 20 MG TAB PO SCH (08:21)
[2017-09-19] MEDS: THIAMINE HCL 100 MG TAB PO SCH (08:21)
[2017-09-19] MEDS: HEPARIN 5,000 UNIT/0.5 ML INJ SC SCH (08:22)
--- NOTE | 2017-09-19 09:45 | NEUSURGPN ---
Assessment/Plan: Assessment: 71 yo male with AMS, expressive aphasia and hx of ETOH abuse, found to have 2 left frontal contusions -CT head stable 09/14 -CT scan was concerning for possible hemorrhagic metastases- MRI brain completed and shows NO metastatic disease of neoplasm-reviewed by Dr Escobedo -Q4hr neuro checks -Any changes, or concerns please contact neurosurgery -DVT prophy ok from Neurosurgery standpoint- would prefer SubQ Hep 5000 q12 no bolus -Patient doing well and remains neurologically intact, he would like to go home -Patient may discharge from neurosurgery standpoint -Ok to resume Coumadin in 7 days (09/26/18) if needed Discussed patient with Dr Escobedo Subjective: Doing well, denies any pain. Sitting in chair Objective: AxO x3 PERRLA EOMI CN 2-12 grossly intact 5/5 BUE, BLE abrasion over left eye Neuro Check Frequency: per routine Urinary Catheter in Place: No - Physician Discussed Patient with Dr.: Escobedo Neurosurgery Physical Exam - Vitals, I&O, Labs I and O 09/18/17 09/19/17 09/20/17 05:59 05:59 05:59 Intake Total 490 400 Balance 490 400 Intake: Oral (ml) 490 400 Other: Output Comment Incontinence pt changing briefs independently Toilet nurse notified of small blood Number of Voids Incontinence 1 Toilet 1 Number of Stools Toilet 1 Vital Signs Temp Pulse Resp BP Pulse Ox 36.9 C 66 18 150/86 H 99 09/18/17 23:41 09/18/17 23:41 09/18/17 23:41 09/18/17 23:41 09/18/17 23:41 Laboratory Results 09/16/17 05:40 09/19/17 04:40 ICD10 Worksheet Patient Problems: Problems Problem Status Onset Intracranial hemorrhage Acute Sepsis Acute Disorder of prostheses and implants Acute
[2017-09-19 11:02] VITALS: BP 144/90
--- NOTE | 2017-09-19 15:23 | ASMTCMCOM ---
CM Note CM Note Notes: Pt medically stable for d/c with ETO[facility] resources. Pt continues to decline HHC/SNF. Pt to transport home. No CM d/c needs identified. Date Signed: 09/19/2017 03:22 PM Electronically Signed By:MARY Mir
--- NOTE | 2017-09-20 04:10 | GDS ---
[f rep st] DISCHARGE SUMMARY DISCHARGE DIAGNOSES: 1. Acute encephalopathy. 2. Subdural hematoma. 3. Agitation. 4. Alcohol dependency and abuse. 5. Fever. 6. Leukocytosis. 7. Lactic acidosis. 8. History of thrombi. 9. Hyperalbuminemia. 10. Hyperlipidemia. CONSULTATIONS: Neurosurgery. PHYSICAL EXAM: GENERAL: The patient is alert. VITAL SIGNS: Afebrile at 36.5, pulse is 65, respira tory rate 16, blood pressure is 144/90, saturating 91% on room air. I have seen and evaluated the sepideh lennon on the day of discharge. HOSPITAL COURSE: The patient is a 71-year-old male who presented to the emergency room with acute co nfusion. He was evaluated and diagnosed with: 1. Acute encephalopathy. This is multifactorial in the setting of subarachnoid hemorrhage and alcoh ol withdrawal. His condition has resolved. The patient does have a time gap in his memory. However , he is oriented today prior to disposition. 2. Subarachnoid hemorrhage. Neurosurgery followed the patient during this hospitalization. He has been stable prior to disposition and he will follow in the outpatient setting with Neurosurgery. 3. Agitation. This has resolved. 4. Alcohol dependency. The patient was treated with CIWA during this hospital course. He has a ifeoma gstanding history of dependency and abuse. He is in a court-appointed alcohol program and will hafsa nue this in the outpatient setting. 5. Fever. None, resolved. 6. Leukocytosis in the setting of a stress response and stable. 7. Lactic acidosis, resolved. 8. History of multiple thrombi. His Coumadin is on hold secondary to his head bleed. He is not a g ood Coumadin candidate given his multiple falls as well as alcohol abuse. He will continue on subcut aneous Lovenox at the time of disposition 40 daily which is a small prophylactic dose in the setting of his recent head bleed. He has been educated with regard to how to administer his Lovenox. He arnaldo l follow up and reinitiate his Coumadin on 09/26/2017 as well as follow up with his primary care phys alexis, given his likelihood for poor compliance and recent head bleeding. 9. Hyperlipidemia. His statin is reinitiated. 10. Disposition. The patient has been encouraged to accept home health care versus [facility]pc facility or 24-hour care at the time of disposition. However, he is adamantly refusing. I have talk ed to him on several occasions about his home safety and he refuses to have any assistance in the out patient setting. He understands it is our recommendation and that we feel he is not at his baseline or safe to be independent in his home. There are no pending studies. Followup will be with Dr. Michael kent of Neurosurgery as well as the patient's primary care physician. Again, his Coumadin should be re- evaluated given the current circumstances. DISCHARGE MEDICATIONS: Please refer to EMR form. I have discontinued the patient's Ambien as well a s his Coumadin is on hold at this time. New medications include Lovenox. I have not adjusted the pa saji's other previously prescribed home medications. He will be discharged home with his . I s pent greater than 35 minutes in the care, coordination, and management of the patient's disposition. /[id number]/MODL
== END 2017-09-19 15:23 | disposition home or self-care (01) | DRG 70 ==
LOC: EDBD → EDUNIT# → F2N 14:28 → F3N 09-17 16:23
PROVIDERS: ADMIT Internal Medicine; ATTEND Internal Medicine
DX: G93.49 Other encephalopathy (principal); S06.5X9A Traumatic subdural hemorrhage with loss of consciousness of unspecified duration, initial encounter; F10.231 Alcohol dependence with withdrawal delirium; E87.2 Acidosis; E78.5 Hyperlipidemia, unspecified; E26.9 Hyperaldosteronism, unspecified; W07.XXXA Fall from chair, initial encounter; R29.6 Repeated falls; Z79.01 Long term (current) use of anticoagulants; Z96.651 Presence of right artificial knee joint; Z96.642 Presence of left artificial hip joint; Z86.718 Personal history of other venous thrombosis and embolism
CPT/HCPCS: 82607-90; 84484-PO; 86334-90; 92523-GN; 92610-GN; 97112-GP; 97116-GP; 97161-GP; 97166-GO; 97535-GO; A9585; G0480; G8978-GP-CJ; G8979-GP-CI; G8980-GP-CI; G8987-GO-CK; G8988-GO-CI; G8996-GN-CH; G8997-GN-CH; G8998-GN-CH; G9165-GN-CI; G9166-GN-CI; J0696; J1644; J2060; J3411; J3475; J3480